=== PATIENT | male | born 1985 | race Two or more races ===

== ENCOUNTER 2024-02-18 15:22 | Emergency (ER) | payer OTHER ==
[~2024-02-18] VITALS: Ht 160 cm; Wt 86.2 kg
[2024-02-18] MEDS ORDERED: 0.9 % SODIUM CHLORIDE 1,000 ML IV STA (16:22)
[2024-02-18 16:52] LABS: PH,URINE 5.5 (5.0-8.0); URINE APPEARANCE Clear; URINE BILIRRUBIN Small (NEGATIVE); URINE BLOOD Moderate; URINE COLOR Dark Yellow; URINE GLUCOSE Negative (NEGATIVE); URINE LEUKOCYTE Negative; URINE NITRATE Negative; URINE PROTEIN >=1000 (NEGATIVE)
[2024-02-18 16:56] LABS: URINE BACTERIA 23.9 uL (0.0-1933); URINE EPITHELIAL CELLS 9.2 uL (0.0-38.8); URINE WBC 3.3 uL (0.0-23.2)
[2024-02-18 17:21] LABS: HEMATOCRIT 43.8 % (39.0-48.0); MEAN CELL VOLUME 88.2 fL (80.0-100.00); MEAN CORPUSCULAR HEMOGLOBIN 30.3 pg (27.00-32.0); MEAN CORPUSCULAR HGB CONC 34.4 g/dl (32.0-36.0); RED BLOOD COUNT 4.96 M/uL (4.00-6.00); RED CELL DISTRIBUTION WIDTH 13.9 % (11.5-14.5)
[2024-02-18 17:23] LABS: CALCIUM 8.9 mg/dL (8.5-10.1); CREATININE SERUM 1.22 mg/dL (0.70-1.30); GFR 65.79; POTASSIUM 3.44 mEq/L (3.5-5.1)
[2024-02-18 18:19] LABS: PLATELET COUNT 55 K/uL (150-450)
== END 2024-02-18 19:57 | disposition home or self-care (01) ==
LOC: ER 15:22
PROVIDERS: Emergency Medicine
DX: A92.8 Other specified mosquito-borne viral fevers (principal); Z88.0 Allergy status to penicillin; Z91.012 Allergy to eggs

== ENCOUNTER 2024-02-19 10:42 | Inpatient (IN) | payer OTHER ==
[~2024-02-19] VITALS: Ht 160 cm; Wt 86.2 kg
[2024-02-19] MEDS ORDERED: 0.9 % SODIUM CHLORIDE 1,000 ML IV SCH ×2 (11:30→17:45)
[2024-02-19 12:07] LABS: HEMATOCRIT 43.3 % (39.0-48.0); HEMOGLOBIN 14.6 g/dL (13-16.00); MEAN CELL VOLUME 87.7 fL (80.0-100.00); MEAN CORPUSCULAR HEMOGLOBIN 29.4 pg (27.00-32.0); MEAN CORPUSCULAR HGB CONC 33.6 g/dl (32.0-36.0); RED BLOOD COUNT 4.94 M/uL (4.00-6.00); RED CELL DISTRIBUTION WIDTH 14.1 % (11.5-14.5)
[2024-02-19 12:22] LABS: INR 0.98; PARTIAL THROMBOPLASTIN TIME 33.9 SECONDS (22.0-34.0); PROTHROMBIN TIME 10.3 SECONDS (9.0-11.5)
[2024-02-19 12:25] LABS: ALBUMIN 3.3 gm/dL (3.4-5.0); BILIRUBIN TOTAL 0.32 mg/dL (0.3-1.2); BILIRUBIN,CONJUGATED 0.11 mg/dL (0.0-0.2); BILIRUBIN,UNCONJUGATED 0.21 mg/dL (0.0-0.6); CALCIUM 8.8 mg/dL (8.5-10.1); CREATININE SERUM 1.03 mg/dL (0.70-1.30); GFR 79.98; GLOBULINA 4.8 G/DL (2.4-3.5); POTASSIUM 3.72 mEq/L (3.5-5.1); TOTAL PROTEIN 8.1 gm/dL (6.4-8.2)
[2024-02-19 13:20] LABS: PLATELET COUNT 38 K/uL (150-450)
[2024-02-19] MEDS ORDERED: ONDANSETRON HCL 4 MG in 0.9 % SODIUM CHLORIDE 50 ML IV PRN (17:45)
[2024-02-19] MEDS ORDERED: ACETAMINOPHEN 500 MG GEL..CAP PO PRN (17:45)
[2024-02-19 18:40] LABS: PH,URINE 5.5 (5.0-8.0); URINE APPEARANCE Clear; URINE BILIRRUBIN Negative (NEGATIVE); URINE COLOR Yellow; URINE GLUCOSE Negative (NEGATIVE); URINE LEUKOCYTE Negative; URINE NITRATE Negative
[2024-02-19 18:43] LABS: URINE BACTERIA 11.3 uL (0.0-1933); URINE EPITHELIAL CELLS 3.2 uL (0.0-38.8); URINE RBC 36.5 uL (0.0-20.8); URINE WBC 2.1 uL (0.0-23.2)
[2024-02-19 18:52] LABS: URINE BLOOD Trace; URINE PROTEIN 300 (NEGATIVE)
[2024-02-20 04:48] LABS: HEMATOCRIT 39.1 % (39.0-48.0); HEMOGLOBIN 13.2 g/dL (13-16.00); MEAN CELL VOLUME 87.4 fL (80.0-100.00); MEAN CORPUSCULAR HEMOGLOBIN 29.4 pg (27.00-32.0); MEAN CORPUSCULAR HGB CONC 33.7 g/dl (32.0-36.0); RED BLOOD COUNT 4.47 M/uL (4.00-6.00); RED CELL DISTRIBUTION WIDTH 14.1 % (11.5-14.5)
[2024-02-20 05:06] LABS: ALBUMIN 2.7 gm/dL (3.4-5.0); BILIRUBIN TOTAL 0.25 mg/dL (0.3-1.2); CALCIUM 7.7 mg/dL (8.5-10.1); CREATININE SERUM 0.88 mg/dL (0.70-1.30); GFR 95.91; GLOBULINA 3.5 G/DL (2.4-3.5); POTASSIUM 3.96 mEq/L (3.5-5.1); TOTAL PROTEIN 6.2 gm/dL (6.4-8.2)
[2024-02-20 06:53] LABS: PLATELET COUNT 41 K/uL (150-450)
[2024-02-20] MEDS ORDERED: PANTOPRAZOLE SODIUM 40 MG/VIAL VIAL IV SCH (09:00)
[2024-02-21 05:16] LABS: HEMOGLOBIN 12.8 g/dL (13-16.00); MEAN CELL VOLUME 88.7 fL (80.0-100.00); MEAN CORPUSCULAR HEMOGLOBIN 29.8 pg (27.00-32.0); MEAN CORPUSCULAR HGB CONC 33.6 g/dl (32.0-36.0); RED BLOOD COUNT 4.29 M/uL (4.00-6.00); RED CELL DISTRIBUTION WIDTH 14.1 % (11.5-14.5)
[2024-02-21 05:24] LABS: PLATELET COUNT 69 K/uL (150-450)
[2024-02-22 08:04] LABS: HEMATOCRIT 39.4 % (39.0-48.0); HEMOGLOBIN 13.3 g/dL (13-16.00); MEAN CELL VOLUME 86.7 fL (80.0-100.00); MEAN CORPUSCULAR HEMOGLOBIN 29.2 pg (27.00-32.0); MEAN CORPUSCULAR HGB CONC 33.7 g/dl (32.0-36.0); RED BLOOD COUNT 4.54 M/uL (4.00-6.00)
[2024-02-22 08:06] LABS: PLATELET COUNT 120 K/uL (150-450)
== END 2024-02-22 12:55 | disposition home or self-care (01) | DRG 866 ==
LOC: ER 10:42 → MEDJ 17:48
PROVIDERS: Emergency Medicine; General Practice; Internal Medicine; ADMIT Internal Medicine; ATTEND Internal Medicine
PROC: BW40ZZZ Ultrasonography of Abdomen (ICD-10-PCS; principal; 2024-02-19)
DX: A90 Dengue fever [classical dengue] (principal); D69.6 Thrombocytopenia, unspecified